=== PATIENT | female | born 1955 | race Caucasian/White ===

== ENCOUNTER 2020-08-12 19:14 | Day surgery (SDCO) | payer OTHER ==
[~2020-08-12 19:14] MED LIST: AMOXICILLIN500 MG PO; BUSPIRONE HCL15 MG PO; CLEOCIN300 MG PO; COZAAR100 MG PO; COZAAR50 MG PO; FOSAMAX70 MG PO; IBUPROFEN800 MG PO; K-DUR20 MEQ PO; LACTINEX1 EACH PO; LASIX40 MG PO; LEVAQUIN750 MG PO; METFORMIN HCL500 MG PO; NORCO 5-325 TA1 EACH PO; NOVOLOG FL100 UNIT/1 SC; SYNTHROID25 MCG PO; TAGAMET HB200 MG PO; TOPROL XL 50 MG50 MG PO; TOPROL XL100 MG PO; VENTOLIN HFA IN18 GM INH; VOLTAREN **OUT75 MG PO; ZYVOX600 MG PO
[2020-08-12 20:04] LABS: BASOPHIL 1.3 % (0-2); HCT 39.5 % (37.0-47.0); HGB 12.4 g/dl (12.5-16.0); LYMPHOCYTE 28.2 % (15-48); MCH 27.7 pg (25.0-31.0); MCHC 31.4 g/dL (32.0-36.0); MCV 88.2 fL (78.0-100.0); MONOCYTE 8.6 % (0-12); MPV 10.8 fL (6.0-9.5); NEUTROPHIL 54.6 % (41-80); NRBC 0; PLT 220 K/uL (150-400); RBC 4.48 M/uL (4.20-5.40); RDW 13.2 % (11.5-14.0); WBC 7.9 K/uL (4.0-10.5)
[2020-08-12 20:31] LABS: PRO-BNP 392 pg/mL (<125)
[2020-08-12 20:42] LABS: ALBUMIN 3.2 g/dL (3.4-5.0); BILIRUBIN - TOTAL 0.4 mg/dL (0.2-1.0); BUN/CREAT RATIO (CALC) 16.9 RATIO; CREATININE 0.59 mg/dL (0.51-0.95); GLOBULIN (CALCULATION) 3.9 g/dL; POTASSIUM 3.8 mmol/L (3.5-5.1); TOTAL PROTEIN 7.1 g/dL (6.4-8.2)
[2020-08-12 20:51] LABS: LACTIC ACID 1.4 mmol/L (0.4-1.9)
[2020-08-12 23:51] LABS: BILIRUBIN NEGATIVE (NEGATIVE); BLOOD 3+ Ery/uL (NEGATIVE); CLARITY CLOUDY (CLEAR); COLOR RED (YELLOW); GLUCOSE (U) NORMAL (NORMAL); LEUKOCYTES NEGATIVE Leu/uL (NEGATIVE); NITRITE NEGATIVE (NEGATIVE); PROTEIN TRACE (LOW) mg/dL (NEGATIVE); SPECIFIC GRAVITY 1.015 (1.001-1.030)
[2020-08-12 23:57] LABS: BACTERIA TRACE; SQUAMOUS EPITHELIAL CELLS RARE; URINARY RBC TNTC
--- NOTE | 2020-08-13 12:04 | NUR ---
PT REPORTS HE LIVES ALONE AND HAS CAREGIVERS THAT COME 2X A DAY TO HELP HIM; HE REPORTS HE HAS [facility] AT HOME FOR AN EMERGENCY. FOR DME: HE REPORTS HE HAS ROLLING WALKER AND W/C AND SHOWER CHAIR. PT REPORTS THAT ONCE HE IS DISCHRAGED TO HOME HE WILL BE PICKED UP BY HIS SON LIZA OCHOA [phone] OR FAWN OCHOA BROTHER [phone]. CHOICE LETTER GIVEN; FOR CONTINUED HOME HELATH AND HE WANTED TO STAY WITH [facility]
[2020-08-13 13:04] LABS: BASOPHIL 1.2 % (0-2); EOSINOPHIL 6.6 % (0-7); HCT 42.4 % (37.0-47.0); HGB 13.1 g/dl (12.5-16.0); LYMPHOCYTE 27.1 % (15-48); MCH 27.5 pg (25.0-31.0); MCHC 30.9 g/dL (32.0-36.0); MCV 89.1 fL (78.0-100.0); MONOCYTE 6.9 % (0-12); MPV 11.3 fL (6.0-9.5); NEUTROPHIL 58.1 % (41-80); NRBC 0; PLT 229 K/uL (150-400); RBC 4.76 M/uL (4.20-5.40); RDW 13.4 % (11.5-14.0); WBC 6.8 K/uL (4.0-10.5)
[2020-08-13] MEDS ORDERED: ASPIRIN EC81 M1 PO (13:58)
--- NOTE | 2020-08-13 16:24 | NUR ---
08/13/20 Ms. Wilson was in May 2020. She is living with her daughter, son-in-law and grandson. Ms. Wilson has experienced a number of deaths; Mother on [place], brother in Jul 2020, and an aunt last week. She is experiencing grief. She denies suicidal ideations, intentions, or attempts. - MS. Wilson was provided with a crisis hotline, counseling services, and [facility]avement support group through [facility]. ---She has a cane.
[2020-08-13] MEDS ORDERED: NITROQUIK SL0.4 MG SL (16:27)
[2020-08-13] MEDS ORDERED: IMDUR 30MG TABL30 MG PO (16:27)
== END 2020-08-13 18:35 | disposition home or self-care (01) ==
LOC: FER 19:14 → FTCU 08-13 02:33
PROVIDERS: Emergency Medicine Emergency Medical Services; Internal Medicine; ADMIT Allergy & Immunology Allergy
DX: R07.89 Other chest pain (principal); E11.9 Type 2 diabetes mellitus without complications; K21.9 Gastro-esophageal reflux disease without esophagitis; I10 Essential (primary) hypertension; F41.8 Other specified anxiety disorders; R31.0 Gross hematuria; E78.00 Pure hypercholesterolemia, unspecified; E89.0 Postprocedural hypothyroidism; I25.10 Atherosclerotic heart disease of native coronary artery without angina pectoris; I25.2 Old myocardial infarction; F17.210 Nicotine dependence, cigarettes, uncomplicated; J44.1 Chronic obstructive pulmonary disease with (acute) exacerbation; Z82.49 Family history of ischemic heart disease and other diseases of the circulatory system; Z79.84 Long term (current) use of oral hypoglycemic drugs; Z20.822 Contact with and (suspected) exposure to COVID-19; Z79.82 Long term (current) use of aspirin; Z79.02 Long term (current) use of antithrombotics/antiplatelets
CPT/HCPCS: 36415; 36600; 71045; 71275; 80053; 81001; 82728; 82803; 82962; 83605; 83615; 83880; 84145; 84484; 85025; 85379; 87088; 93005; 94010; G0378; J0696; J2930; J7030; Q9967; U0002

== ENCOUNTER 2021-01-21 22:28 | Emergency (ER) | payer MEDICARE ==
[~2021-01-21 22:28] MED LIST changes: +ASPIRIN EC81 M1 PO; +IMDUR 30MG TABL30 MG PO; +NITROQUIK SL0.4 MG SL
[2021-01-21 23:06] LABS: BASOPHIL 1.1 % (0-2); EOSINOPHIL 4.5 % (0-7); HCT 38.8 % (37.0-47.0); HGB 12.4 g/dl (12.5-16.0); LYMPHOCYTE 26.5 % (15-48); MCH 28.4 pg (25.0-31.0); MONOCYTE 8.7 % (0-12); MPV 10.7 fL (6.0-9.5); NEUTROPHIL 58.8 % (41-80); NRBC 0; PLT 212 K/uL (150-400); RBC 4.36 M/uL (4.20-5.40); RDW 14.1 % (11.5-14.0); WBC 9.3 K/uL (4.0-10.5)
[2021-01-21 23:34] LABS: ALBUMIN 3.3 g/dL (3.4-5.0); BILIRUBIN - TOTAL 0.4 mg/dL (0.2-1.0); BUN/CREAT RATIO (CALC) 25.3 RATIO; CREATININE 0.91 mg/dL (0.51-0.95); GLOBULIN (CALCULATION) 3.9 g/dL; TOTAL PROTEIN 7.2 g/dL (6.4-8.2)
[2021-01-22 00:14] LABS: BILIRUBIN NEGATIVE (NEGATIVE); BLOOD NEGATIVE Ery/uL (NEGATIVE); CLARITY CLEAR (CLEAR); COLOR YELLOW (YELLOW); GLUCOSE (U) NORMAL (NORMAL); LEUKOCYTES NEGATIVE Leu/uL (NEGATIVE); NITRITE NEGATIVE (NEGATIVE); PROTEIN 1+ mg/dL (NEGATIVE); SPECIFIC GRAVITY 1.025 (1.001-1.030)
[2021-01-22 00:20] LABS: BACTERIA TRACE; URINARY RBC RARE; URINARY WBC RARE
[2021-01-22 00:23] LABS: AMPHETAMINES NEGATIVE (NEGATIVE); BARBITURATES NEGATIVE (NEGATIVE); ECSTASY (MDMA) NEGATIVE (NEGATIVE); MARIJUANA (THC) NEGATIVE (NEGATIVE); METHADONE NEGATIVE (NEGATIVE); OPIATES NEGATIVE (NEGATIVE); OXYCODONE NEGATIVE (NEGATIVE)
== END 2021-01-22 00:51 | disposition home or self-care (01) ==
LOC: FER 22:28
PROVIDERS: Emergency Medicine
DX: E03.9 Hypothyroidism, unspecified (principal); S20.461A Insect bite (nonvenomous) of right back wall of thorax, initial encounter; J44.9 Chronic obstructive pulmonary disease, unspecified; F17.210 Nicotine dependence, cigarettes, uncomplicated; W57.XXXA Bitten or stung by nonvenomous insect and other nonvenomous arthropods, initial encounter
CPT/HCPCS: 36415; 80053; 80305; 81001; 84443; 85025; 99283

== ENCOUNTER 2021-11-22 00:36 | Inpatient (IN) | payer OTHER ==
[~2021-11-22] VITALS: Ht 162.6 cm; Wt 95.0 kg
[2021-11-22 00:59] LABS: BASOPHIL 0.4 % (0-2); EOSINOPHIL 0.2 % (0-7); HCT 38.9 % (37.0-47.0); HGB 12.5 g/dl (12.5-16.0); LYMPHOCYTE 3.2 % (15-48); MCH 27.8 pg (25.0-31.0); MCHC 32.1 g/dL (32.0-36.0); MCV 86.4 fL (78.0-100.0); MONOCYTE 1.3 % (0-12); MPV 10.6 fL (6.0-9.5); NRBC 0; PLT 193 K/uL (150-400); RDW 12.8 % (11.5-14.0); WBC 9.7 K/uL (4.0-10.5)
[2021-11-22 01:01] LABS: NEUTROPHIL 94.4 % (41-80)
[2021-11-22 01:16] LABS: INR 1.11 (0.9-1.2); PROTHROMBIN TIME 13.7 SECONDS (11.8-13.4); PTT 25.5 SECONDS (24.4-34.7)
[2021-11-22 01:20] LABS: ALBUMIN 3.2 g/dL (3.4-5.0); BILIRUBIN - TOTAL 1.1 mg/dL (0.2-1.0); BUN/CREAT RATIO (CALC) 14.3 RATIO; CREATININE 1.19 mg/dL (0.51-0.95); GLOBULIN (CALCULATION) 3.8 g/dL; POTASSIUM 3.1 mmol/L (3.5-5.1)
[2021-11-22 01:28] LABS: LACTIC ACID 2.4 mmol/L (0.4-1.9)
[2021-11-22 02:40] LABS: BILIRUBIN NEGATIVE (NEGATIVE); BLOOD 1+ Ery/uL (NEGATIVE); CLARITY CLEAR (CLEAR); COLOR YELLOW (YELLOW); GLUCOSE (U) NORMAL (NORMAL); LEUKOCYTES TRACE Leu/uL (NEGATIVE); NITRITE POSITIVE (NEGATIVE); PROTEIN NEGATIVE (NEGATIVE); UROBILINOGEN 0.2 mg/dL (0.2-1.0)
[2021-11-22 02:46] LABS: URINARY RBC RARE
[2021-11-22 02:47] LABS: BACTERIA 3+
[2021-11-22 03:56] LABS: CORONAVIRUS 2019 SARS-COV-2 NEGATIVE (NEGATIVE); INFLUENZA A NAA NEGATIVE (NEGATIVE)
[2021-11-22] MEDS ORDERED: METFORMIN HCL500 MG PO (05:43)
[2021-11-22] MEDS ORDERED: PLAVIX75 MG PO (05:45)
[2021-11-22] MEDS ORDERED: LIPITOR40 MG PO (05:45)
[2021-11-22] MEDS ORDERED: POTASSIUM CHLO10 ME1 PO (05:45)
[2021-11-22] MEDS ORDERED: ISOSORBIDE MONO60 MG PO (05:46)
[2021-11-22] MEDS ORDERED: COZAAR100 MG PO (05:47)
[2021-11-22] MEDS ORDERED: LEXAPRO 10MG TA10 MG PO (05:47)
[2021-11-22] MEDS ORDERED: TOPROL XL 50 MG50 MG PO (05:48)
[2021-11-22] MEDS ORDERED: WELLBUTRIN SR150 MG PO (05:48)
[2021-11-22] MEDS ORDERED: LASIX40 MG PO (05:48)
[2021-11-22] MEDS ORDERED: LEVOTHYROXINE150 MC1 PO (05:49)
[2021-11-22 07:02] LABS: BASOPHIL 0.4 % (0-2); EOSINOPHIL 0 % (0-7); HCT 36.8 % (37.0-47.0); HGB 11.5 g/dl (12.5-16.0); LYMPHOCYTE 5.9 % (15-48); MCH 27.6 pg (25.0-31.0); MCHC 31.3 g/dL (32.0-36.0); MCV 88.2 fL (78.0-100.0); MONOCYTE 1.4 % (0-12); MPV 10.5 fL (6.0-9.5); NEUTROPHIL 91.7 % (41-80); NRBC 0; PLT 132 K/uL (150-400); RBC 4.17 M/uL (4.20-5.40)
[2021-11-22 07:07] LABS: WBC 5.1 K/uL (4.0-10.5)
[2021-11-22 07:39] LABS: BUN/CREAT RATIO (CALC) 10.6 RATIO; CREATININE 1.7 mg/dL (0.51-0.95); FT4 (FREE T4) 1.3 ng/dL (0.76-1.46); POTASSIUM 3.4 mmol/L (3.5-5.1)
[2021-11-22 07:46] LABS: MAGNESIUM 2.4 mg/dL (1.8-2.4)
[2021-11-22 15:02] LABS: BASOPHIL 0.3 % (0-2); EOSINOPHIL 0.2 % (0-7); HCT 40.7 % (37.0-47.0); HGB 12.2 g/dl (12.5-16.0); LYMPHOCYTE 4.4 % (15-48); MCH 27.9 pg (25.0-31.0); MONOCYTE 4.4 % (0-12); MPV 11.4 fL (6.0-9.5); NEUTROPHIL 87.5 % (41-80); NRBC 0; PLT 149 K/uL (150-400); RBC 4.38 M/uL (4.20-5.40); RDW 13.2 % (11.5-14.0)
[2021-11-22 15:26] LABS: IRON % SATURATION 3.4 %SAT (20-50)
[2021-11-22 15:36] LABS: BILIRUBIN NEGATIVE (NEGATIVE); BLOOD 3+ Ery/uL (NEGATIVE); CLARITY HAZY (CLEAR); COLOR YELLOW (YELLOW); GLUCOSE (U) NORMAL (NORMAL); LEUKOCYTES 1+ Leu/uL (NEGATIVE); NITRITE POSITIVE (NEGATIVE); PROTEIN TRACE (LOW) mg/dL (NEGATIVE); SPECIFIC GRAVITY 1.015 (1.001-1.030); UROBILINOGEN 0.2 mg/dL (0.2-1.0)
[2021-11-22 15:38] LABS: MCV 92.9 fL (78.0-100.0)
[2021-11-22 15:45] LABS: BACTERIA 3+
[2021-11-22 16:26] LABS: URINE CREATININE 93.54 mg/dL (29.00-226.00)
[2021-11-22 16:37] LABS: BUN/CREAT RATIO (CALC) 11.7 RATIO; C-REACTIVE PROTEIN 11.1 mg/dL (<=0.90); CREATININE 1.88 mg/dL (0.51-0.95); FOLIC ACID (SERUM) 4.9 ng/mL (8.6-58.9); MAGNESIUM 2.1 mg/dL (1.8-2.4); PHOSPHORUS 3.1 mg/dL (2.6-4.7); POTASSIUM 3.8 mmol/L (3.5-5.1)
--- NOTE | 2021-11-22 18:09 | NUR ---
[address] VILLEGAS OF PT BP 81/55, HE ORDERED A 2ND LR BOLUS, AND TRANSFERED TO THE ICU RM 4, AFTER MOVING TO ICU BP DROPPED AGAIN AND JAILYN BP WAS 58/38, DR CANALES TOOK OVER FOR DR VILLEGAS AND HE ORDERED LEVOPHED, STARTED AT 4MCG WENT UP TO 8MCG. 1809 LEVOPHED CURRENTLY AT 4MCG/15ML/HR BP 111/66 HR 77 PT MORE ALERT AT THIS TIME, AND ATE SOME CLEAR LIQUID DINNER
--- NOTE | 2021-11-22 19:11 | NUR ---
10 RINGS AND 4 BRACELETS GIVEN TO HER DAUGHTER FRANCIE CASTAÑEDA SENIOR VICE PRESIDENT & GENERAL COUNSEL AND MYSELF REMOVED THE RINGS AND PLACED IN CUPS WITH TOPS
[2021-11-22 22:27] LABS: BUN/CREAT RATIO (CALC) 15.6 RATIO; CREATININE 1.67 mg/dL (0.51-0.95); POTASSIUM 4.5 mmol/L (3.5-5.1)
[2021-11-23 06:25] LABS: BASOPHIL 0.5 % (0-2); HCT 36.4 % (37.0-47.0); HGB 10.9 g/dl (12.5-16.0); LYMPHOCYTE 4.9 % (15-48); MCH 27.3 pg (25.0-31.0); MCHC 29.9 g/dL (32.0-36.0); MONOCYTE 4.5 % (0-12); MPV 11.5 fL (6.0-9.5); NRBC 0; PLT 137 K/uL (150-400); RDW 13.2 % (11.5-14.0); WBC 19.6 K/uL (4.0-10.5)
[2021-11-23 06:51] LABS: BUN/CREAT RATIO (CALC) 17.3 RATIO; CREATININE 1.39 mg/dL (0.51-0.95); POTASSIUM 4.1 mmol/L (3.5-5.1)
--- NOTE | 2021-11-23 14:31 | NUR ---
11/23/21 Ms. Wilson, her daughter, son-in-law and 15 y/o grandson share a home together. She has a cane, 3in1, and inoperable concentrator orderd for nocturnal use. Ms. Wilson would like to use [facility] opposed to current [facility] should continuous 02 be needed at discharge.
[2021-11-24 04:29] LABS: BUN/CREAT RATIO (CALC) 23.3 RATIO; CREATININE 1.03 mg/dL (0.51-0.95); POTASSIUM 4.6 mmol/L (3.5-5.1)
[2021-11-24 04:34] LABS: BASOPHIL 0.1 % (0-2); EOSINOPHIL 0 % (0-7); HCT 31.5 % (37.0-47.0); HGB 9.7 g/dl (12.5-16.0); LYMPHOCYTE 4.8 % (15-48); MCH 27.4 pg (25.0-31.0); MCHC 30.8 g/dL (32.0-36.0); MONOCYTE 5.7 % (0-12); MPV 12.2 fL (6.0-9.5); NEUTROPHIL 78.8 % (41-80); NRBC 0; PLT 125 K/uL (150-400); RBC 3.54 M/uL (4.20-5.40); RDW 13.4 % (11.5-14.0)
[2021-11-24 04:36] LABS: WBC 14.2 K/uL (4.0-10.5)
[2021-11-25 06:31] LABS: BASOPHIL 0.1 % (0-2); EOSINOPHIL 0 % (0-7); HGB 9.7 g/dl (12.5-16.0); LYMPHOCYTE 5.5 % (15-48); MCH 27.3 pg (25.0-31.0); MCHC 30.3 g/dL (32.0-36.0); MCV 90.1 fL (78.0-100.0); MPV 12.1 fL (6.0-9.5); NEUTROPHIL 83.2 % (41-80); NRBC 0; PLT 138 K/uL (150-400); RBC 3.55 M/uL (4.20-5.40); RDW 13.6 % (11.5-14.0)
[2021-11-25 06:35] LABS: WBC 11.5 K/uL (4.0-10.5)
[2021-11-25 06:51] LABS: BUN/CREAT RATIO (CALC) 16.7 RATIO; CREATININE 1.2 mg/dL (0.51-0.95); POTASSIUM 4.7 mmol/L (3.5-5.1)
--- NOTE | 2021-11-26 14:08 | NUR ---
11/26/21 It is anticipated that patient will require antibiotion infusion at discharge. Ms. Wilson prefers to have Outpatient infusion.
[2021-11-29 06:20] LABS: BASOPHIL 0.3 % (0-2); HCT 31.9 % (37.0-47.0); LYMPHOCYTE 11.9 % (15-48); MCH 27.3 pg (25.0-31.0); MCHC 31.3 g/dL (32.0-36.0); MCV 87.2 fL (78.0-100.0); MONOCYTE 8.8 % (0-12); NEUTROPHIL 71.5 % (41-80); NRBC 0.3; PLT 143 K/uL (150-400); RBC 3.66 M/uL (4.20-5.40); RDW 13.3 % (11.5-14.0); WBC 8.9 K/uL (4.0-10.5)
[2021-11-29 06:36] LABS: BUN/CREAT RATIO (CALC) 25.9 RATIO; CREATININE 0.85 mg/dL (0.51-0.95); POTASSIUM 4.4 mmol/L (3.5-5.1)
[2021-11-29] MEDS ORDERED: FOLIC ACID1 MG PO (17:02)
[2021-11-29] MEDS ORDERED: LEVAQUIN750 MG PO (17:02)
[2021-11-29] MEDS ORDERED: CASPOFUNGIN IV (17:02)
[2021-11-29] MEDS ORDERED: ONDANSETRON HCL4 MG PO (17:58)
--- NOTE | 2021-11-30 14:27 | NUR ---
12/05/21 Nestor was informed that patient reports her concentrator not to be working and her iability to reach them. Nestor will reach out to Ms. Wilson.
== END 2021-11-29 18:15 | disposition home or self-care (01) | DRG 871 ==
LOC: FER 00:36 → FICU 04:30 → FMS 04:30 → FTCU 04:30 → FICU 11:35 → FMS 11-25 18:33
PROVIDERS: Allergy & Immunology; Allergy & Immunology Allergy; Internal Medicine; ADMIT Internal Medicine
PROC: 3E03329 Introduction of Other Anti-infective into Peripheral Vein, Percutaneous Approach (ICD-10-PCS; principal; 2021-11-22)
PROC: 3E033XZ Introduction of Vasopressor into Peripheral Vein, Percutaneous Approach (ICD-10-PCS; 2021-11-22)
PROC: 0T9B70Z Drainage of Bladder with Drainage Device, Via Natural or Artificial Opening (ICD-10-PCS; 2021-11-22)
PROC: 05HY33Z Insertion of Infusion Device into Upper Vein, Percutaneous Approach (ICD-10-PCS; 2021-11-24)
PROC: B24BZZZ Ultrasonography of Heart with Aorta (ICD-10-PCS; 2021-11-29)
DX: A41.59 Other Gram-negative sepsis (principal); J18.9 Pneumonia, unspecified organism; R65.21 Severe sepsis with septic shock; G93.41 Metabolic encephalopathy; N17.0 Acute kidney failure with tubular necrosis; N39.0 Urinary tract infection, site not specified; J44.1 Chronic obstructive pulmonary disease with (acute) exacerbation; J44.0 Chronic obstructive pulmonary disease with (acute) lower respiratory infection; J98.11 Atelectasis; A41.81 Sepsis due to Enterococcus; B37.7 Candidal sepsis; F17.210 Nicotine dependence, cigarettes, uncomplicated; Z20.822 Contact with and (suspected) exposure to COVID-19; Z28.310 Unvaccinated for COVID-19; R09.02 Hypoxemia; D50.9 Iron deficiency anemia, unspecified; D52.9 Folate deficiency anemia, unspecified; E83.42 Hypomagnesemia; E87.6 Hypokalemia; M25.561 Pain in right knee; M25.562 Pain in left knee; W19.XXXA Unspecified fall, initial encounter; I11.0 Hypertensive heart disease with heart failure; I50.9 Heart failure, unspecified; E78.5 Hyperlipidemia, unspecified; E11.9 Type 2 diabetes mellitus without complications; K21.9 Gastro-esophageal reflux disease without esophagitis; F41.9 Anxiety disorder, unspecified; F32.A Depression, unspecified; M54.50 Low back pain, unspecified; G89.29 Other chronic pain; E89.0 Postprocedural hypothyroidism; Z79.02 Long term (current) use of antithrombotics/antiplatelets; Z79.84 Long term (current) use of oral hypoglycemic drugs; Z79.899 Other long term (current) drug therapy; Z90.710 Acquired absence of both cervix and uterus; Z95.5 Presence of coronary angioplasty implant and graft; Z86.14 Personal history of Methicillin resistant Staphylococcus aureus infection; Z98.890 Other specified postprocedural states
CPT/HCPCS: 36415; 36600; 71045; 71250; 73560; 80048; 80053; 81001; 82570; 82607; 82746; 82803; 82962; 83036; 83540; 83550; 83605; 83690; 83735; 83880; 84100; 84145; 84300; 84439; 84443; 84484; 85025; 85610; 85730; 86140; 87040; 87076; 87077; 87088; 87186; 93005; 94010; 94640; 94664; C1751; J0637; J1650; J2020; J2543; J2916; J2920; J3475; J3480; J7030; J7050; J7120; U0002